=== PATIENT | female | born 1980 | race Caucasian/White ===

== ENCOUNTER → 2023-12-10 13:02 | Outpatient (REF) | payer BC, SELFPAY | LOC: WDC 13:02 | PROVIDERS: ATTENDING PHYSICIAN Nurse Practitioner Adult Health; FAMILY PHYSICIAN Family Medicine | DX: Z12.31 Encounter for screening mammogram for malignant neoplasm of breast (principal) | CPT/HCPCS: 77063; 77067 ==

== ENCOUNTER 2025-03-15 06:15 | Day surgery (SDC) | payer BC, SELFPAY | END 2025-03-15 14:46 | disposition home or self-care (01) | LOC: GI 06:15 | PROVIDERS: ATTENDING PHYSICIAN Internal Medicine Gastroenterology | DX: R13.10 Dysphagia, unspecified (principal); K22.89 Other specified disease of esophagus; K31.89 Other diseases of stomach and duodenum; K31.A11 Gastric intestinal metaplasia without dysplasia, involving the antrum; K20.90 Esophagitis, unspecified without bleeding | CPT/HCPCS: 43239; 88305; 88342 ==